=== PATIENT | male | born 1995 | race Caucasian/White ===

== ENCOUNTER 2022-10-16 10:14 | Emergency (ER) | payer OTHER, SELFPAY ==
[2022-10-16 10:37] VITALS: BP 153/97; PULSE 81; RESP 20; TEMP 36.8; O2SAT 98; BMI 24.4
--- NOTE | 2022-10-16 12:23 | ED.WOUNDLAC ---
HPI - Wound/Laceration General Chief Complaint: Laceration/Wound Stated Complaint: Hit on head Time Seen by Provider: 10/16/22 12:03 History of Present Illness HPI narrative: This 27-year-old male comes in with an injury to his forehead that occurred at work prior to arrival. He got hit in the head by a door and has a 3 cm linear laceration in right forehead. He did not have loss of consciousness. His tetanus status is up-to-date. He does not report any other symptoms. Related Data Home Medications Medication Instructions Recorded Confirmed No Known Home Medications 10/16/22 10/16/22 Allergies Allergy/AdvReac Type Severity Reaction Status Date / Time morphine Allergy Verified 10/16/22 10:41 Review of Systems Status of ROS: Reports: 10 or more systems reviewed and unremarkable except as noted in History and below Narrative: Constitutional: No fevers, no weight gain or loss. Eyes: No discharge. No vision changes. HENT: No congestion, no sore throat, no ear pain. Cardiovascular: No chest pain, no palpitations. Respiratory: No shortness of breath, no wheezes, no cough. Gastrointestinal: No abdominal pain, no vomiting, no diarrhea. Genitourinary: No dysuria, no hematuria. Musculoskeletal: Normal range of motion. Skin: No rashes, no pruritis. Forehead laceration as described above. Neurological: No dizziness, weakness, sensory change, speech change. Endo/Heme/Allergies: No bruising or bleeding. No polydipsia. Pysch: no suicidality, no anxiety, no insomnia. All other systems reviewed and are negative. PFSH PFSH Social History Smoking Status: Never smoker Do you use any of these nicotine containing products: None Second hand tobacco smoke exposure: No How often do you have a drink containing alcohol: 2-3 times a week How many standard drinks containing alcohol do you have on a typical day: 1 or 2 How often do you have six or more drinks on one occasion: Never AUDIT-C Alcohol total score: 3 Non-prescribed substance use: denies use Exam Narrative: Exam Narrative: Constitutional: Well-developed, well-nourished, no acute distress. HEENT: 3 cm linear laceration of the right forehead. There is an abrasion nearby also. Neck: Normal range of motion. Nontender. Supple. Heart: Regular. No murmurs. Normal rate. Intact distal pulses. Lungs: Clear to auscultation. No chest discomfort. No wheezes, rhonchi, or rales. Abdomen: Normal bowel sounds. Nontender. No rebound tenderness. Genitalia: Deferred. Back: No midline tenderness. Normal range of motion. Extremities: Normal range of motion. No injury. Skin: Intact. No rash. Warm. No erythema or pallor. Neurologic: No altered sensation. No weakness. Alert and oriented. Psychiatric: No suicidality. No anxiety or depression. No insomnia. Nursing notes and vitals signs are reviewed. Const: Vital Signs, click to edit/add: Vital Signs - 24 hr 10/16/22 10:37 Temperature 98.3 F Pulse Rate [Pulse Oximeter] 81 Respiratory Rate 20 Blood Pressure [Ri ght Upper Arm] 153/97 H Pulse Oximetry 98 Oxygen Delivery Me thod Room Air Course Vital Signs Vital signs: Initial Vital Signs Temperature 98.3 F 10/16/22 10:37 Temperature Source Temporal Artery Scan 10/16/22 10:37 Pulse Rate 81 10/16/22 10:37 Respiratory Rate 20 10/16/22 10:37 Blood Pressure 153/97 H 10/16/22 10:37 Blood Pressure Mean 115 10/16/22 10:37 Blood Pressure Position Sitting 10/16/22 10:37 Pulse Oximetry 98 10/16/22 10:37 Oxygen Delivery Method 10/16/22 10:37 Vital Signs Temperature 98.3 F 10/16/22 10:37 Pulse Rate 81 10/16/22 10:37 Respiratory Rate 20 10/16/22 10:37 Blood Pressure 153/97 H 10/16/22 10:37 Pulse Oximetry 98 10/16/22 10:37 Oxygen Delivery Method 10/16/22 10:37 Temperature 98.3 F 10/16/22 10:37 Pulse Rate 81 10/16/22 10:37 Respiratory Rate 20 10/16/22 10:37 Blood Pressure 153/97 H 10/16/22 10:37 Pulse Oximetry 98 10/16/22 10:37 Oxygen Delivery Method 10/16/22 10:37 MDM - Wound/Laceration MDM Narrative Medical decision making narrative: This patient has a laceration on his forehead. There was no loss of consciousness or other symptoms that would indicate imaging studies at this time. This patient's wound is best repaired with suture. After receiving 1% lidocaine with epinephrine 3 sutures were placed using 5.0 Ethilon sutures. This approximated the wound edges nicely. Instructions regarding wound care were provided. The patient understands that he needs to have sutures removed in 5-7 days. Discharge Plan Discharge Clinical Impression: Laceration Patient Disposition: Home, Self-Care Condition: Improved Additional Instructions: Return to urgent care or clinic in 5-7 days for suture removal. Keep wound clean and dry. Follow up with MD otherwise as needed. Prescriptions: No Action No Known Home Medications Follow Up/Referrals: Provider,Not a Local [Primary Care Provider] - Stand Alone Forms: [employer] software Info Instructions
== END 2022-10-16 12:31 | disposition home or self-care (01) ==
PROVIDERS: Emergency Provider Emergency Medicine Emergency Medical Services
DX: S01.91XA Laceration without foreign body of unspecified part of head, initial encounter (principal); W22.8XXA Striking against or struck by other objects, initial encounter
CPT/HCPCS: 12002; 99283; 99284